=== PATIENT | female | born 1990 ===

== ENCOUNTER → 2025-01-23 07:34 | Outpatient (CLI) | payer OTHER | END | disposition home or self-care (01) | LOC: PRENATAL 07:34 | PROVIDERS: ATTEND Obstetrics & Gynecology Maternal & Fetal Medicine | DX: O26.849 Uterine size-date discrepancy, unspecified trimester (principal); O24.419 Gestational diabetes mellitus in pregnancy, unspecified control; O99.280 Endocrine, nutritional and metabolic diseases complicating pregnancy, unspecified trimester; O99.210 Obesity complicating pregnancy, unspecified trimester; Z3A.17 17 weeks gestation of pregnancy ==

== ENCOUNTER 2025-02-24 12:02 | Outpatient (CLI) | payer OTHER | END 2025-02-24 12:03 | disposition home or self-care (01) | LOC: PRENATAL 12:02 | PROVIDERS: ATTEND Obstetrics & Gynecology Maternal & Fetal Medicine | DX: O44.00 Complete placenta previa NOS or without hemorrhage, unspecified trimester (principal); O24.419 Gestational diabetes mellitus in pregnancy, unspecified control; O99.280 Endocrine, nutritional and metabolic diseases complicating pregnancy, unspecified trimester; Z3A.21 21 weeks gestation of pregnancy ==

== ENCOUNTER → 2025-04-08 13:58 | Outpatient (CLI) | payer OTHER | END | disposition home or self-care (01) | LOC: PRENATAL 13:58 | PROVIDERS: ATTEND Obstetrics & Gynecology Maternal & Fetal Medicine | DX: O26.849 Uterine size-date discrepancy, unspecified trimester (principal); O24.419 Gestational diabetes mellitus in pregnancy, unspecified control; O99.280 Endocrine, nutritional and metabolic diseases complicating pregnancy, unspecified trimester; Z3A.28 28 weeks gestation of pregnancy ==